=== PATIENT | male | born 1965 | race Caucasian/White ===

== ENCOUNTER → 2016-10-09 | Outpatient (CLI) | payer OTHER ==
--- NOTE | 2016-10-09 13:12 | REP ---
MRI BRAIN WITHOUT AND WITH CONTRAST: HISTORY: Hypogonadism. CONTRAST: ProHance 20 mL. COMPARISON: 04/24/2016. There are no areas of abnormal signal intensity in the brain. There is no intraparenchymal hemorrhage, infarct, mass or midline shift. The sella turcica is empty. There is no abnormal enhancement. The ventricular system is normal in appearance. There is no extracerebral collection. The cerebellar tonsils extend 2 mm inferior through the foramen magnum. There is deformity of the occipital bone. The sinuses are clear. IMPRESSION: There is no intracranial lesion. Signed by Yunior Odell MD 10/09/2016 01:31 P
== END ==
LOC: M PLARAD 11:21
DX: E29.1 Testicular hypofunction (principal)

== ENCOUNTER → 2018-08-23 | Outpatient (CLI) | payer OTHER ==
--- NOTE | 2018-08-23 17:38 | REP ---
MRCP without contrast: History: Cholelithiasis with biliary obstruction. Technique: Axial and coronal T2-weighted scans were obtained. MRCP acquisition is acquired and maximum intensity projection images are generated and viewed rotationally. MRCP findings: There are two large faceted gallstones within the region of the neck of the gallbladder. No pericholecystic fluid is seen. The intrahepatic and extrahepatic biliary tree is not dilated. Common bile duct is normal in caliber. The pancreatic duct is not dilated. No pancreatic mass lesion is seen. CVD has a maximum diameter of 6 mm. There is a peripheral simple cyst left kidney 3.1 cm in diameter. In addition, there is a low T2 signal intensity nodule in the left mid kidney consistent with a proteinaceous cyst or calculus. This measures 1.5 cm in diameter. This could be further evaluated with renal sonography. Impression: Cholelithiasis. No evidence of choledocholithiasis. No biliary or pancreatic ductal dilation is observed. There is a complex cyst versus a calculus in the left kidney along with a simple cyst. Consider renal sonography. Electronically Signed by Prtaik Wyman MD 08/23/2018 07:00 P
== END ==
LOC: M PLARAD 12:56
PROVIDERS: ATTEND Surgery
DX: K80.20 Calculus of gallbladder without cholecystitis without obstruction (principal); N28.1 Cyst of kidney, acquired